=== PATIENT | male | born 1965 | race Caucasian/White ===

== ENCOUNTER 2019-03-20 22:47 | Inpatient (IN) | payer OTHER ==
[2019-03-20 23:03] VITALS: BMI 24.3
--- NOTE | 2019-03-21 00:09 | HP ---
CIWA Score Nausea/Vomitin-No Nausea/No Vomiting Muscle Tremors: None Anxiety: 1-Mildly Anxious Agitation: 1-Slight > Activity Paroxysmal Sweats: No Perspiration Orientation: 0-Oriented Tacttile Disturbances: 0-None Auditory Disturbances: 0-None Visual Disturbances: 0-None Headache: 2-Mild CIWA-Ar Total Score: 4 - Admission Criteria OASAS Guidelines: Admission for Medically Managed Detox: Requires at least one of the followin. CIWA greater than 12 2. Seizures within the past 24 hours 3. Delirium tremens within the past 24 hours 4. Hallucinations within the past 24 hours 5. Acute intervention needed for co occurring medical disorder 6. Acute intervention needed for co occurring psychiatric disorder 7. Severe withdrawal that cannot be handled at a lower level of care (continued vomiting, continued diarrhea, abnormal vital signs) requiring intravenous medication and/or fluids 8. Patient presents the following: None of the above Admission Criteria Met: Admission criteria not met Admission ROS S - [facility] Chief Complaint: SEEKING REHAB SERVICES Allergies/Adverse Reactions: Allergies Allergy/AdvReac Type Severity Reaction Status Date / Time No Known Allergies Allergy Verified 03/20/19 22:58 History of Present Illness: HERE FOR INPATIENT REHAB FOR ALCOHOL ABUSE. CLIENT PRESENTS TODAY REFERRED BY HIS [facility] DUE TO ALCOHOL INTOXICATION. CLIENT REPORTS 4 YEARS CLEAN . RELAPSING TODAY AFTER 4 YEARS CLEAN. HE REPORTS DRINKING 1.5 PINTS OF VODKA TODAY. SEEKING INPATIENT TXMENT DUE TO ENVIRONMENTAL TRIGGERS AND POOR RECOVERY ENVIRONMENT. SUBJECTING HIM TO WANTING TO USE ALCOHOL. CLIENT WANTS TO STOP BEFORE HE LOSES CONTROL. DENIES HX/O SEIZURES, BLACK OUTS. HOMLESS- [facility], UNEMPLOYED, DENIES LEGALS Exam Limitations: Intoxication (CLINICALLY STABLE) - Ebola screening Have you traveled outside of the country in the last 21 days: No (N) Have you had contact with anyone from an Ebola affected area: No Do you have a fever: No - Review of Systems Constitutional: Changes in sleep EENT: reports: Blurred Vision (RX GLASSES), Dental Problems (MISSING TEETH, POOR DENTITION) Respiratory: reports: No Symptoms reported Cardiac: reports: No Symptoms Reported GI: reports: No Symptoms Reported : reports: No Symptoms Reported Musculoskeletal: reports: No Symptoms Reported Integumentary: reports: Flushing Neuro: reports: No Symptoms reported Endocrine: reports: No Symptoms Reported Hematology: reports: No Symptoms Reported Psychiatric: reports: Orientated x3, Anxious Other Systems: Reviewed and Negative Patient History - Patient Medical History Hx Anemia: No Hx Asthma: No Hx Chronic Obstructive Pulmonary Disease (COPD): No Hx Cancer: No Hx Cardiac Disorders: No Hx Congestive Heart Failure: No Hx Hypertension: No Hx Hypercholesterolemia: No Hx Pacemaker: No Hx Seizures: No Hx Dementia: No Hx Diabetes: No Hx Gastrointestinal Disorders: No Hx Liver Disease: No Hx Genitourinary Disorders: No Hx Sexually Transmitted Disorders: No Hx Renal Disease (ESRD): No Hx Thyroid Disease: No Hx Human Immunodeficiency Virus (HIV): No Hx Hepatitis C: No Hx Depression: No Hx Suicide Attempt: No Hx Bipolar Disorder: No Hx Schizophrenia: No Other Medical History: DENIES - Patient Surgical History Past Surgical History: No - PPD History Previous Implant?: Yes Documented Results: Negative w/o proof Implanted On Prior [facility] Admission?: No PPD to be Administered?: Yes - Smoking Cessation Smoking history: Never smoked Cigars Per Day: 0 Hx Chewing Tobacco Use: Yes (1can/wk) Initiated information on smoking cessation: Yes 'Breaking Loose' booklet given: 03/21/19 - Substance & Tx. History Hx Alcohol Use: Yes Hx Substance Use: Yes Substance Use Type: Alcohol Hx Substance Use Treatment: Yes ([facility]) - Substances abused Alcohol Other (specify): 4 years clean and drank today Substance route: Oral Frequency: No use in 30 days (TODAY) Amount used: 1 PINT AND A HALF OF VODKA Age of first use: 20 Date of last use: 03/20/19 Admission Physical Exam S - Vital Signs Vital Signs: Vital Signs - 24 hr 03/20/19 23:00 Temperature 97.4 F L Pulse Rate 99 H Respiratory 17 Rate Blood Pressure 133/84 - Physical General Appearance: Yes: Alcohol on Breath, Intoxicated (CLINCALLY STABLE), Anxious HEENTM: Yes: EOMI, Normocephalic, Normal Voice, AL, Pharynx Normal, Other ( DRY MUCUS MEMBranes) Respiratory: Yes: Chest Non-Tender, Lungs Clear, Normal Breath Sounds, No Respiratory Distress, No Accessory Muscle Use Neck: Yes: No masses,lesions,Nodules, Supple, Trachea in good position Breast: Yes: Breast Exam Deferred Cardiology: Yes: Regular Rhythm, Regular Rate, S1, S2 Abdominal: Yes: Normal Bowel Sounds, Non Tender, Soft Genitourinary: Yes: Within Normal Limits (no c/o) Back: Yes: Normal Inspection Musculoskeletal: Yes: full range of Motion, Gait Steady Extremities: Yes: Normal Range of Motion, Non-Tender Neurological: Yes: Fully Oriented, Alert, Motor Strength 5/5 Integumentary: Yes: Clammy, Other (flushed) Lymphatic: Yes: Within Normal Limits - Diagnostic (1) Alcohol dependence, uncomplicated Current Visit: Yes Status: Acute (2) Alcohol-induced mood disorder Current Visit: Yes Status: Acute (3) Dry mouth Current Visit: Yes Status: Acute (4) At risk for dehydration Current Visit: Yes Status: Acute Cleared for Admission [facility] - Detox or Rehab Detox Regimen/Protocol: Not Applicable Claeared for Rehab Admission: Yes Inpatient Rehab Admission - Rehab Decision to Admit Inpatient rehab admission?: Yes - Initial Determination Are CD services needed?: Yes Free of communicable disease: Yes Not in need of hospitalization: Yes - Rehab Admission Criteria Previous failed treatment: Yes Poor recovery environment: Yes Comorbidities: Yes Lacks judgement: No Patient is meeting Inpatient Rehab admission criteria:: Yes
[2019-03-21] MEDS ORDERED: MAG HYDROX/AL HYDROX/SIMETH 30 ML UNIT-DOSE CUP PO PRN (00:20)
[2019-03-21] MEDS ORDERED: MENTHOL/PHENOL 1 EACH UD MM PRN (00:20)
[2019-03-21] MEDS ORDERED: LOPERAMIDE HCL 2 MG CAPSULE PO PRN (00:20)
[2019-03-21] MEDS ORDERED: MAGNESIUM HYDROX 2400MG/30ML ORAL SUSPENSION 30 ML CUP PO PRN (00:20)
[2019-03-21] MEDS ORDERED: guaiFENesin 200 MG/10 ML 10 ML UNIT-DOSE CUPS PO PRN (00:20)
[2019-03-21] MEDS ORDERED: MAGNESIUM CITRATE 300 ML BOTTLE PO PRN (00:20)
--- NOTE | 2019-03-21 09:31 | CONSULT ---
[facility] Psychiatric Consult - Data Date of interview: 03/21/19 Admission source: [facility] Identifying data: Patient is a 54 year old male, , father of one, unemployed, resides in a senior care and is supported by welfare. This is patient's first admission to rehab at [facility]. Patient admitted to for alcohol dependence. Substance Abuse History: - Smoking Cessation. Smoking history: Never smoked. Cigars Per Day: 0. Hx Chewing Tobacco Use: Yes (1can/wk). Initiated information on smoking cessation: Yes. 'Breaking Loose' booklet given: . - Substance & Tx. History. Hx Alcohol Use: Yes. Hx Substance Use: Yes. Substance Use Type: Alcohol. Hx Substance Use Treatment: Yes ([facility] ). - Substances abused. Alcohol. Other (specify): 4 years clean and drank today. Substance route: Oral. Frequency: No use in 30 days (TODAY). Amount used: 1 PINT AND A HALF OF VODKA. Age of first use: 20. Date of last use: 03/20/19 Medical History: denies. Psychiatric History: Patient denies history of psychiatric hospitalizations, outpatient care, and suicide attempt. At present patient reports stable mood but is experiencing difficulty sleeping. Physical/Sexual Abuse/Trauma History: denies. Mental Status Exam - Mental Status Exam Alert and Oriented to: Time, Place, Person Cognitive Function: Good Patient Appearance: Well Groomed Mood: Euthymic Affect: Mood Congruent Patient Behavior: Cooperative Speech Pattern: Appropriate Voice Loudness: Normal Thought Process: Goal Oriented Thought Disorder: Not Present Hallucinations: Denies Suicidal Ideation: Denies Homicidal Ideation: Denies Insight/Judgement: Poor Sleep: Poorly Appetite: Fair Muscle strength/Tone: Normal Gait/Station: Normal Psychiatric Findings - Problem List (Hope 1, 2,3) (1) Alcohol dependence, uncomplicated Current Visit: Yes Status: Acute (2) Alcohol-induced sleep disorder Current Visit: No Status: Chronic (3) Alcohol-induced mood disorder Current Visit: No Status: Suspected - Initial Treatment Plan Initial Treatment Plan: Psychoeducation provided. Rehab in progress. Melatonin 5mg ordered for insomnia. Benefits and side effects discussed. Verbal consent given.
[2019-03-21] MEDS: PRENATAL VITAMINS W/ FOLIC ACID TABLET (FP) PO SCH (10:58)
[2019-03-21 12:19] LABS: HEMATOCRIT 42.5 % (35.4-49); HEMOGLOBIN 14.7 GM/dL (11.7-16.9); MCH 32.8 pg (25.7-33.7); MCHC 34.5 g/dl (32.0-35.9); MEAN CELL VOLUME 95.1 fl (80-96); MEAN PLT VOLUME 9.7 fl (7.5-11.1); PLATELET COUNT 136 K/MM3 (134-434); RBC 4.47 M/mm3 (4.00-5.60); RDW 14.3 % (11.9-15.9); WHITE BLOOD COUNT 4.1 K/mm3 (4.0-10.0)
[2019-03-21 12:39] LABS: ALBUMIN 4.1 g/dl (3.4-5.0); BILIRUBIN,TOTAL 0.4 mg/dL (0.2-1); BLOOD UREA NITROGEN 11.6 mg/dL (7-18); CALCIUM 8.2 mg/dL (8.5-10.1); CREATININE 0.7 mg/dL (0.55-1.3); POTASSIUM 3.5 mmol/L (3.5-5.1); TOT PROT 7.4 g/dl (6.4-8.2)
--- NOTE | 2019-03-21 13:59 | PN ---
[facility] Progress Note Note: Pt is a 54 y/o male ith alcohol use disorder admitted to rehab from [facility]. denies any past medical or psych history. As per Admission H/P : HERE FOR INPATIENT REHAB FOR ALCOHOL ABUSE. CLIENT PRESENTS TODAY REFERRED BY HIS GROUP HOME DUE TO ALCOHOL INTOXICATION. CLIENT REPORTS 4 YEARS CLEAN . RELAPSING TODAY AFTER 4 YEARS CLEAN. HE REPORTS DRINKING 1.5 PINTS OF VODKA TODAY. SEEKING INPATIENT TXMENT DUE TO ENVIRONMENTAL TRIGGERS AND POOR RECOVERY ENVIRONMENT. SUBJECTING HIM TO WANTING TO USE ALCOHOL. CLIENT WANTS TO STOP BEFORE HE LOSES CONTROL. DENIES HX/O SEIZURES, BLACK OUTS. HOMLESS- GROUP HOME, UNEMPLOYED, DENIES LEGALS Exam Limitations: Intoxication (CLINICALLY STABLE). Nurse Tri called repairer typewriter to report that this patient might be having withdrawal sx. This repairer typewriter saw the patient who had some tremors . C/o nausea/ vomiting with clear foamy spit. Denies diarrhea,sob, chest pain,headache but "dizzy if i put my head down". Reports 4 yrs of sobriety and started back drinking yesterday. Reports chronic nasal problem/post nasal drip "snort that runs down my throat" and triggers spitting up. Pt declined possible transfer to detox floor and wants to rest/sleep because arrived here late last night. Vital Signs - 24 hr 03/20/19 03/21/19 03/21/19 23:00 03:30 07:24 Temperature 97.4 F L 98.3 F Pulse Rate 99 H 90 Respiratory 17 18 18 Rate Blood Pressure 133/84 119/80 03/21/19 13:52 Temperature 98 F Pulse Rate 76 Respiratory 18 Rate Blood Pressure 135/86 Laboratory Tests 03/21/19 03/21/19 03/21/19 08:00 08:00 08:00 WBC 4.1 RBC 4.47 Hgb 14.7 Hct 42.5 MCV 95.1 MCH 32.8 MCHC 34.5 RDW 14.3 Plt Count 136 MPV 9.7 Sodium 141 Potassium 3.5 Chloride 104 Carbon Dioxide 28 Anion Gap 9 BUN 11.6 Creatinine 0.7 Est GFR (CKD-EPI)AfAm 124.00 Est GFR (CKD-EPI)NonAf 106.99 Random Glucose 93 Calcium 8.2 L Total Bilirubin 0.4 AST 121 H ALT 217 H Alkaline Phosphatase 72 Total Protein 7.4 Albumin 4.1 RPR Titer Nonreactive Pulse ox:95% room air A/P New pt to rehab will monitor patient and intervene if necessary. istaril 50 mg po Q4h prn for anxiety Zofran prn as directed for nausea and/or vomiting Actifed prn for nasal congestion flonase nasal spray
[2019-03-21] MEDS ORDERED: ONDANSETRON *ODT* 4 MG TABLET SL PRN (14:07)
[2019-03-21] MEDS: hydrOXYzine PAMOATE 50 MG CAPSULE (FP) PO PRN (15:33)
--- NOTE | 2019-03-21 15:36 | PN ---
[facility] CIWA - CIWA Score Nausea/Vomitin (Phlegm with saliva-no food particles) Muscle Tremors: 2 Anxiety: 2 Agitation: 1-Slight > Activity Paroxysmal Sweats: No Perspiration Orientation: 0-Oriented Tacttile Disturbances: 0-None Auditory Disturbances: 0-None Visual Disturbances: 0-None Headache: 0-None Present CIWA-Ar Total Score: 8 [facility] Progress Note (SOAP) Subjective: Pt states "i feel a little better now after taking a nap. Pt also received zofran and vistaril a few minutes ago and flex o writer operator told patient will monitor and transfer to appropriate level of care if sx worsens. Objective: 03/21/19 15:40 Vital Signs - 24 hr 03/20/19 03/21/19 03/21/19 23:00 03:30 07:24 Temperature 97.4 F L 98.3 F Pulse Rate 99 H 90 Respiratory 17 18 18 Rate Blood Pressure 133/84 119/80 03/21/19 13:52 Temperature 98 F Pulse Rate 76 Respiratory 18 Rate Blood Pressure 135/86 Laboratory Tests 03/21/19 03/21/19 03/21/19 08:00 08:00 08:00 WBC 4.1 RBC 4.47 Hgb 14.7 Hct 42.5 MCV 95.1 MCH 32.8 MCHC 34.5 RDW 14.3 Plt Count 136 MPV 9.7 Sodium 141 Potassium 3.5 Chloride 104 Carbon Dioxide 28 Anion Gap 9 BUN 11.6 Creatinine 0.7 Est GFR (CKD-EPI)AfAm 124.00 Est GFR (CKD-EPI)NonAf 106.99 Random Glucose 93 Calcium 8.2 L Total Bilirubin 0.4 AST 121 H ALT 217 H Alkaline Phosphatase 72 Total Protein 7.4 Albumin 4.1 RPR Titer Nonreactive CIWA Score = 8 No Known PMHx/Psych Hx Assessment: 03/21/19 15:40 protracted w/s post nasal drip Plan: D/w pt will monitor pt for worsening symptoms and transfer to detox. If better with current intervention, may continue rehab. patient agreeable to poc
[2019-03-21] MEDS: FLUTICASONE PROP 0.05% 16 GM NASAL SPRAY NS SCH (21:52)
[2019-03-21] MEDS: MELATONIN 5 MG TABLETS PO PRN (21:52)
[2019-03-21] MEDS: THIAMINE HCL 100 MG TABLET (FP) PO SCH (22:48)
[2019-03-22] MEDS: hydrOXYzine PAMOATE 50 MG CAPSULE (FP) PO PRN (06:33)
[2019-03-22] MEDS: PRENATAL VITAMINS W/ FOLIC ACID TABLET (FP) PO SCH (10:20)
[2019-03-22] MEDS: FLUTICASONE PROP 0.05% 16 GM NASAL SPRAY NS SCH ×2 (10:20→21:44)
--- NOTE | 2019-03-22 11:34 | EKG ---
Test Reason : Blood Pressure : / mmHG Vent. Rate : 098 BPM Atrial Rate : 098 BPM P-R Int : 160 ms QRS Dur : 082 ms QT Int : 336 ms P-R-T Axes : 050 007 039 degrees QTc Int : 428 ms NORMAL SINUS RHYTHM NO PREVIOUS ECGS AVAILABLE Confirmed by GILMAR PETERS MD ([id number]) on 03/22/2019 11:34:22 AM Referred By: Amador Solo Confirmed By:GILMAR PETERS MD
[2019-03-22] MEDS: MELATONIN 5 MG TABLETS PO PRN (21:45)
[2019-03-22] MEDS: THIAMINE HCL 100 MG TABLET (FP) PO SCH (21:46)
[2019-03-23] MEDS: PRENATAL VITAMINS W/ FOLIC ACID TABLET (FP) PO SCH (10:42)
[2019-03-23] MEDS: FLUTICASONE PROP 0.05% 16 GM NASAL SPRAY NS SCH ×2 (10:42→21:31)
[2019-03-23 11:18] LABS: EPI CELLS 1.8 /HPF (0-5/HPF); HYALINE CASTS 11 /lpf (0-8); PH,URINE 6.5 (5.0-8.0); URINE APPEARANCE CLEAR; URINE BILIRUBIN NEGATIVE (NEGATIVE); URINE COLOR DK YELLOW; URINE GLUCOSE (UA) NEGATIVE (NEGATIVE); URINE KETONE NEGATIVE (NEGATIVE); URINE LEUK ESTERASE NEGATIVE (NEGATIVE); URINE NITRITE NEGATIVE (NEGATIVE); URINE PROTEIN TRACE (NEGATIVE); URINE RBC 3 /hpf (0-4); URINE WBC 1 /hpf (0-5)
[2019-03-23] MEDS: MELATONIN 5 MG TABLETS PO PRN (21:31)
[2019-03-23] MEDS: THIAMINE HCL 100 MG TABLET (FP) PO SCH (21:32)
[2019-03-24] MEDS: FLUTICASONE PROP 0.05% 16 GM NASAL SPRAY NS SCH ×2 (11:04→21:23)
[2019-03-24] MEDS: PRENATAL VITAMINS W/ FOLIC ACID TABLET (FP) PO SCH (11:04)
[2019-03-24] MEDS: MELATONIN 5 MG TABLETS PO PRN (21:23)
[2019-03-24] MEDS: THIAMINE HCL 100 MG TABLET (FP) PO SCH (21:23)
[2019-03-25] MEDS: PRENATAL VITAMINS W/ FOLIC ACID TABLET (FP) PO SCH (10:12)
[2019-03-25] MEDS: FLUTICASONE PROP 0.05% 16 GM NASAL SPRAY NS SCH ×2 (10:12→21:38)
[2019-03-25] MEDS: THIAMINE HCL 100 MG TABLET (FP) PO SCH (21:39)
[2019-03-25] MEDS: MELATONIN 5 MG TABLETS PO PRN (21:39)
[2019-03-25] MEDS: IBUPROFEN 400 MG TABLET (FP) PO PRN (21:39)
[2019-03-26] MEDS: IBUPROFEN 400 MG TABLET (FP) PO PRN ×2 (06:56→21:36)
[2019-03-26] MEDS: PRENATAL VITAMINS W/ FOLIC ACID TABLET (FP) PO SCH (10:34)
[2019-03-26] MEDS: FLUTICASONE PROP 0.05% 16 GM NASAL SPRAY NS SCH ×2 (10:34→21:35)
[2019-03-26] MEDS: THIAMINE HCL 100 MG TABLET (FP) PO SCH (21:34)
[2019-03-26] MEDS: MELATONIN 5 MG TABLETS PO PRN (21:35)
[2019-03-27] MEDS: FLUTICASONE PROP 0.05% 16 GM NASAL SPRAY NS SCH ×2 (10:59→21:38)
[2019-03-27] MEDS: PRENATAL VITAMINS W/ FOLIC ACID TABLET (FP) PO SCH (10:59)
[2019-03-27] MEDS: IBUPROFEN 400 MG TABLET (FP) PO PRN ×2 (10:59→21:39)
[2019-03-27] MEDS: P-EPHED 60MG/TRIPROLIDI 2.5MG TABLET PO PRN (17:27)
[2019-03-27] MEDS: MELATONIN 5 MG TABLETS PO PRN (21:38)
[2019-03-27] MEDS: THIAMINE HCL 100 MG TABLET (FP) PO SCH (21:40)
[2019-03-28] MEDS: IBUPROFEN 400 MG TABLET (FP) PO PRN ×2 (11:00→21:31)
[2019-03-28] MEDS: FLUTICASONE PROP 0.05% 16 GM NASAL SPRAY NS SCH ×2 (11:00→21:31)
[2019-03-28] MEDS: PRENATAL VITAMINS W/ FOLIC ACID TABLET (FP) PO SCH (11:00)
[2019-03-28] MEDS: THIAMINE HCL 100 MG TABLET (FP) PO SCH (21:32)
[2019-03-28] MEDS: MELATONIN 5 MG TABLETS PO PRN (21:32)
[2019-03-29] MEDS: FLUTICASONE PROP 0.05% 16 GM NASAL SPRAY NS SCH ×2 (09:34→21:25)
[2019-03-29] MEDS: PRENATAL VITAMINS W/ FOLIC ACID TABLET (FP) PO SCH (09:34)
[2019-03-29] MEDS: P-EPHED 60MG/TRIPROLIDI 2.5MG TABLET PO PRN (10:30)
[2019-03-29] MEDS: IBUPROFEN 400 MG TABLET (FP) PO PRN (16:34)
[2019-03-29] MEDS: MELATONIN 5 MG TABLETS PO PRN (21:25)
[2019-03-29] MEDS: ACETAMINOPHEN 325 MG TABLET (FP) PO PRN (21:26)
[2019-03-29] MEDS: THIAMINE HCL 100 MG TABLET (FP) PO SCH (21:27)
[2019-03-30] MEDS: FLUTICASONE PROP 0.05% 16 GM NASAL SPRAY NS SCH ×2 (09:57→22:55)
[2019-03-30] MEDS: PRENATAL VITAMINS W/ FOLIC ACID TABLET (FP) PO SCH (09:57)
[2019-03-30] MEDS: P-EPHED 60MG/TRIPROLIDI 2.5MG TABLET PO PRN (09:58)
[2019-03-30] MEDS: IBUPROFEN 400 MG TABLET (FP) PO PRN ×2 (09:58→22:54)
[2019-03-30] MEDS: MELATONIN 5 MG TABLETS PO PRN (22:54)
[2019-03-30] MEDS: THIAMINE HCL 100 MG TABLET (FP) PO SCH (22:56)
[2019-03-31] MEDS: PRENATAL VITAMINS W/ FOLIC ACID TABLET (FP) PO SCH (10:06)
[2019-03-31] MEDS: FLUTICASONE PROP 0.05% 16 GM NASAL SPRAY NS SCH ×2 (10:07→21:37)
[2019-03-31] MEDS: P-EPHED 60MG/TRIPROLIDI 2.5MG TABLET PO PRN (10:08)
[2019-03-31] MEDS: MELATONIN 5 MG TABLETS PO PRN (21:38)
[2019-03-31] MEDS: THIAMINE HCL 100 MG TABLET (FP) PO SCH (21:38)
[2019-04-01] MEDS: PRENATAL VITAMINS W/ FOLIC ACID TABLET (FP) PO SCH (10:41)
[2019-04-01] MEDS: FLUTICASONE PROP 0.05% 16 GM NASAL SPRAY NS SCH ×2 (10:41→21:36)
[2019-04-01] MEDS: ACETAMINOPHEN 325 MG TABLET (FP) PO PRN (10:42)
[2019-04-01] MEDS: P-EPHED 60MG/TRIPROLIDI 2.5MG TABLET PO PRN ×2 (10:42→21:35)
[2019-04-01] MEDS: MELATONIN 5 MG TABLETS PO PRN (21:35)
[2019-04-01] MEDS: THIAMINE HCL 100 MG TABLET (FP) PO SCH (21:35)
[2019-04-01] MEDS: hydrOXYzine PAMOATE 50 MG CAPSULE (FP) PO PRN (21:36)
[2019-04-02] MEDS: FLUTICASONE PROP 0.05% 16 GM NASAL SPRAY NS SCH ×2 (10:26→21:37)
[2019-04-02] MEDS: PRENATAL VITAMINS W/ FOLIC ACID TABLET (FP) PO SCH (10:26)
[2019-04-02] MEDS: ACETAMINOPHEN 325 MG TABLET (FP) PO PRN (13:53)
[2019-04-02] MEDS: MELATONIN 5 MG TABLETS PO PRN (21:37)
[2019-04-02] MEDS: THIAMINE HCL 100 MG TABLET (FP) PO SCH (21:39)
[2019-04-02] MEDS: P-EPHED 60MG/TRIPROLIDI 2.5MG TABLET PO PRN (21:39)
[2019-04-03 07:09] VITALS: TEMP 98
[2019-04-03] MEDS: FLUTICASONE PROP 0.05% 16 GM NASAL SPRAY NS SCH ×2 (10:37→21:40)
[2019-04-03] MEDS: PRENATAL VITAMINS W/ FOLIC ACID TABLET (FP) PO SCH (10:37)
[2019-04-03] MEDS: P-EPHED 60MG/TRIPROLIDI 2.5MG TABLET PO PRN ×2 (10:38→21:41)
[2019-04-03] MEDS: THIAMINE HCL 100 MG TABLET (FP) PO SCH (21:40)
[2019-04-03] MEDS: MELATONIN 5 MG TABLETS PO PRN (21:40)
[2019-04-04 07:18] VITALS: BP 98/58; PULSE 73
--- NOTE | 2019-04-04 09:59 | DS ---
[facility] Rehab Discharge Summary - [facility] Rehab Discharge Summary Admission Date: 03/21/19 Discharge Date: 04/04/19 - History Present History: Alcohol dependence Additional Comments: Pt is a 54 y/o male with a hx of alcohol use disorder admitted to rehab due to current relapse after four years of sobriety and discharging today. Pt is homeless and has been referred to [facility] in [facility] for housing. Pt refused aftercare referral stating he will follow up on his own with [facility] CD [facility]PD. However, pt was referred back to his previous treatment program at [facility] on [address] [place], [place] for aftercare follow up. Pt was also encouraged to seek primary care with [facility] OP medical clinic or [facility] Medical clinic. Pertinent Past History: denies - Discharge Physical Exam Vital Signs: Vital Signs Temperature 98.0 F 04/04/19 07:18 Pulse Rate 73 04/04/19 07:18 Respiratory Rate 18 04/04/19 07:18 Blood Pressure 98/58 L 04/04/19 07:18 O2 Sat by Pulse Oximetry (%) alert o x 3 nad oob ambulating with steady gait cardiac:s1 s2, rrr lungs:cta, alis. abdomen:soft,+bs,nt,flat extremities/skin:no edema,full ROM/weight bearing;skin intact. Pertinent Admission Physical Exam Findings: Laboratory Tests 03/21/19 03/21/19 03/21/19 08:00 08:00 08:00 WBC 4.1 RBC 4.47 Hgb 14.7 Hct 42.5 MCV 95.1 MCH 32.8 MCHC 34.5 RDW 14.3 Plt Count 136 MPV 9.7 Sodium 141 Potassium 3.5 Chloride 104 Carbon Dioxide 28 Anion Gap 9 BUN 11.6 Creatinine 0.7 Est GFR (CKD-EPI)AfAm 124.00 Est GFR (CKD-EPI)NonAf 106.99 Random Glucose 93 Calcium 8.2 L Total Bilirubin 0.4 AST 121 H ALT 217 H Alkaline Phosphatase 72 Total Protein 7.4 Albumin 4.1 Urine Color Urine Appearance Urine pH Ur Specific [place] Urine Protein Urine Glucose (UA) Urine Ketones Urine Blood Urine Nitrite Urine Bilirubin Urine Urobilinogen Ur Leukocyte Esterase Urine WBC (Auto) Urine RBC (Auto) Urine Casts (Auto) U Epithel Cells (Auto) Urine Bacteria (Auto) RPR Titer Nonreactive 03/23/19 08:40 WBC RBC Hgb Hct MCV MCH MCHC RDW Plt Count MPV Sodium Potassium Chloride Carbon Dioxide Anion Gap BUN Creatinine Est GFR (CKD-EPI)AfAm Est GFR (CKD-EPI)NonAf Random Glucose Calcium Total Bilirubin AST ALT Alkaline Phosphatase Total Protein Albumin Urine Color Dk yellow Urine Appearance Clear Urine pH 6.5 Ur Specific [place] 1.024 Urine Protein Trace Urine Glucose (UA) Negative Urine Ketones Negative Urine Blood 1+ H Urine Nitrite Negative Urine Bilirubin Negative Urine Urobilinogen 1.0 Ur Leukocyte Esterase Negative Urine WBC (Auto) 1 Urine RBC (Auto) 3 Urine Casts (Auto) 11 U Epithel Cells (Auto) 1.8 Urine Bacteria (Auto) 17.0 RPR Titer - Treatment Discharge Condition: Discharge condition good Hospital Course: Rehabilitated safely and responded well Refused CD aftercare referral but wants to follow up by himself at [facility] programs. - Medication Discharge Medications: Ambulatory Orders NK [No Known Home Medication] 03/20/19 - Medication-Assisted Treatment (MAT) Medication-Assisted Treatment (MAT): No - Discharge Instructions Diet, activity, other medical instructions: Diet:regular Activity: oob ad lorenzo Other medical instructions:Follow up with CD aftercare as recommended. Follow up with primary care with [facility] in [facility] within 1-2 weeks after discharge and as needed. - Diagnosis (1) Alcohol dependence, uncomplicated Current Visit: Yes Status: Chronic (2) At risk for dehydration Current Visit: Yes Status: Acute (3) Dry mouth Current Visit: Yes Status: Acute - Follow-up Referral Minutes to complete discharge: 20 - AMA Did Patient Leave Against Medical Advice: No
[2019-04-04] MEDS: PRENATAL VITAMINS W/ FOLIC ACID TABLET (FP) PO SCH (10:13)
[2019-04-04] MEDS: FLUTICASONE PROP 0.05% 16 GM NASAL SPRAY NS SCH (10:13)
== END 2019-04-04 10:25 | disposition home or self-care (01) | DRG 772 ==
LOC: YASAS 22:47 → Y5N 03-21 00:06
PROVIDERS: ADMIT Surgery; ATTEND Surgery
PROC: HZ42ZZZ Group Counseling for Substance Abuse Treatment, Cognitive-Behavioral (ICD-10-PCS; principal; 2019-03-21)
DX: F10.20 Alcohol dependence, uncomplicated (principal); F10.24 Alcohol dependence with alcohol-induced mood disorder; F10.282 Alcohol dependence with alcohol-induced sleep disorder; R63.8 Other symptoms and signs concerning food and fluid intake; R68.2 Dry mouth, unspecified; R09.82 Postnasal drip
CPT/HCPCS: 36415; 80053; 81003; 85027; 86593; 93005; 93010; Q0162